=== PATIENT | female | born 1980 | race Caucasian/White ===

== ENCOUNTER → 2021-05-14 | Outpatient (CLI) | payer BC ==
--- NOTE | 2021-05-14 21:52 | US ---
EXAMINATION TYPE: US pelvic complete DATE OF EXAM: 05/14/2021 COMPARISON: NONE CLINICAL HISTORY: N94.6 DYSMENORRHEA. TECHNIQUE: Transabdominal (TA). Date of LMP: 05/13/2021 EXAM MEASUREMENTS: Uterus: 8.7 x 5.2 x 5.9 cm Endometrial Stripe: 1.4 cm Right Ovary: 3.5 x 2.6 x 4.2 cm Left Ovary: 4.6 x 2.1 x 3.9 cm 1. Uterus: Anteverted wnl 2. Endometrium: measures 1.4 cm 3. Right Ovary: follicle measures 1.7 x 1.4 x 1.3 cm. 4. Left Ovary: wnl 5. Bilateral Adnexa: wnl 6. Posterior cul-de-sac: no free fluid Anteverted uterus. Endometrial stripe is not accurately measured but appears eccentrically thickened for proliferative phase of menstrual cycle. No free fluid in pelvic cul-de-sac. Both ovaries identified with scattered peripheral follicles. No suspicious adnexal masses. IMPRESSION: Abnormal thickening of endometrium for proliferative phase of menstrual cycle. Suboptimal study as transvaginal investigation performed. Consider dilatation and curettage to further evaluate .
== END | disposition home or self-care (01) ==
LOC: RADUSWWP 15:36
PROVIDERS: ATTEND Internal Medicine
DX: R93.89 Abnormal findings on diagnostic imaging of other specified body structures (principal)
CPT/HCPCS: 76856